=== PATIENT | male | born 1955 | race Native Hawaiian/Other Pacific Islander ===

== ENCOUNTER 2017-02-21 08:41 | Outpatient (CLI) | payer MEDICAID ==
[2017-02-21 13:35] LABS: BASOPHILS % (AUTO) 0.3 %; LYMPHOCYTES # (AUTO) 1.8 10^3/uL (1.5-3.5); MEAN CORPUSCULAR HGB CONC 34.3 g/dL (32.0-36.0); UNCORRECTED WHITE BLOOD COUNT 6.4 x10^3/uL; WHITE BLOOD COUNT 6.4 x10^3/uL (4.8-10.8)
[2017-02-21 13:38] LABS: EOSINOPHILS # (AUTO) 0.4 10^3/uL (0.0-0.7); EOSINOPHILS % (AUTO) 6.3 %; HCT - HEMATOCRIT 49.8 % (42.0-52.0); HGB - HEMOGLOBIN 17.1 g/dL (14.0-18.0); LYMPHOCYTES % (AUTO) 27.4 %; MEAN CORPUSCULAR HEMOGLOBIN 33.8 pg (27.0-31.0); MEAN CORPUSCULAR VOLUME 98.6 fL (80.0-94.0); MEAN PLATELET VOLUME 8.5 fL (7.4-11.4); MONOCYTES # (AUTO) 0.3 10^3/uL (0.0-1.0); MONOCYTES % (AUTO) 5.2 %; NEUTROPHILS # (AUTO) 3.9 10^3/uL (1.5-6.6); NEUTROPHILS % (AUTO) 60.8 %; RED BLOOD COUNT 5.05 10^6/uL (4.70-6.10); RED CELL DISTRIBUTION WIDTH 13.6 % (12.0-15.0)
[2017-02-21 13:57] LABS: ALBUMIN/GLOBULIN RATIO 1.5 (1.0-2.2); BILIRUBIN,TOTAL 0.8 mg/dL (0.2-1.0); BUN - BLOOD UREA NITROGEN 14 mg/dL (6-20); CARBON DIOXIDE - CO2 27 mmol/L (21-32); CHLORIDE 104 mmol/L (101-111); CHOLESTEROL 153 mg/dL; CREATININE 0.8 mg/dL (0.6-1.2); GFR - MDRD 99 (>89); GLUCOSE 90 mg/dL (70-100); HDL CHOLESTEROL 51 mg/dL; LDL/HDL RATIO 1.6 (<3.6); POTASSIUM 3.8 mmol/L (3.5-5.0); SODIUM 138 mmol/L (135-145); TOTAL PROTEIN 6.9 g/dL (6.7-8.2); TRIGLYCERIDES 111 mg/dL; VLDL CHOLESTEROL 22 mg/dL
== END 2017-02-21 08:42 | disposition home or self-care (01) ==
LOC: LAB.N 08:41
PROVIDERS: ATTEND Physician Assistant
DX: I10 Essential (primary) hypertension (principal)
CPT/HCPCS: 36415; 80053; 80061; 84443; 85025

== ENCOUNTER 2017-02-25 15:03 | Outpatient (CLI) | payer MEDICAID | END 2017-02-25 15:04 | disposition home or self-care (01) | LOC: LAB.N 15:03 | PROVIDERS: ATTEND Physician Assistant | DX: D69.6 Thrombocytopenia, unspecified (principal); E53.8 Deficiency of other specified B group vitamins | CPT/HCPCS: 36415; 82607; 85049 ==

== ENCOUNTER 2017-07-12 15:36 | Outpatient (CLI) | payer MEDICAID ==
--- NOTE | 2017-07-13 20:41 | XRAY Report ---
EXAM: CERVICAL SPINE RADIOGRAPHY EXAM DATE: 07/12/2017 03:54 PM. CLINICAL HISTORY: NECK PAIN. COMPARISONS: None. TECHNIQUE: 4 views. FINDINGS: Alignment: Normal. No spondylolisthesis or scoliosis. Bones: The cervical vertebral bodies and posterior elements are well visualized from the skull base t hrough C7-T1. There is anterior plate and screw fusion spanning C3-C7, with multilevel diskectomies. Disks: Multilevel diskectomy changes. Degenerative changes at C2-C3. Facets: Mild facet arthropathy. Soft Tissues: Normal. No prevertebral soft tissue swelling. The visualized lung apices are clear. IMPRESSION: Postoperative changes. No evidence of fracture or hardware complication. [facility] Referring Provider Line: [phone] SITE ID: [id number]
== END 2017-07-12 15:37 | disposition home or self-care (01) ==
LOC: DI.N 15:36
PROVIDERS: ATTEND Family Medicine
DX: M54.2 Cervicalgia (principal)
CPT/HCPCS: 72040

== ENCOUNTER 2017-11-28 07:52 | Outpatient (CLI) | payer MEDICAID ==
--- NOTE | 2017-11-28 14:46 | XRAY Report ---
CHEST TWO VIEWS: 11/28/2017 HISTORY: Chest, neck and shoulder pain. COMPARISON: Thoracic spine x-ray 11/02/2009. FINDINGS: Postsurgical changes cervical spine. Normal heart size. Clear lungs. No pleural fluid or pneumothorax. Degenerative changes in the thoracic spine with mild reverse S-shaped thoracic scoliosis. IMPRESSION: CLEAR LUNGS. NO ACUTE FINDINGS. TD: 11/28/2017 14:45
--- NOTE | 2017-11-28 14:48 | XRAY Report ---
RIGHT SHOULDER THREE VIEWS: 11/28/2017 HISTORY: Pain. COMPARISON: No comparisons. FINDINGS: Three views of the right shoulder show degenerative change at the acromioclavicular joint with narrowing and spurring. There is mild degenerative change at the glenohumeral articulation. No evidence of fracture, bone destruction, or soft tissue calcification. Included portions of the right lung are unremarkable. IMPRESSION: DEGENERATIVE CHANGE RIGHT SHOULDER WITHOUT SUPERIMPOSED ACUTE FINDINGS. TD: 11/28/2017 14:47
--- NOTE | 2017-11-28 14:54 | XRAY Report ---
CERVICAL SPINE FIVE VIEWS: 11/28/2017 HISTORY: Neck pain. COMPARISON: 07/12/2017. FINDINGS: The patient is status post anterior interbody fusion with anterior plate and screw fixation C3 through C7. No evidence of hardware change since 07/12/2017. There is ligamentum nuchal calcification. The right neural foramina are not well seen. There is neural foraminal encroachment on the left at C6-C7. No prevertebal soft tissue swelling. IMPRESSION: STABLE POSTOPERATIVE APPEARANCE OF THE CERVICAL SPINE COMPARED WITH 07/12/2017 REDEMONSTRATING CHANGES OF ANTERIOR C3 THROUGH C7 INCLUSIVE FUSION. TD: 11/28/2017 14:53 OXANA
== END 2017-11-28 07:53 | disposition home or self-care (01) ==
LOC: DI 07:52
PROVIDERS: ATTEND Internal Medicine
DX: R05 Cough (principal); M54.2 Cervicalgia; M19.011 Primary osteoarthritis, right shoulder; Z98.1 Arthrodesis status
CPT/HCPCS: 71046; 72050

== ENCOUNTER 2023-08-23 19:47 | Outpatient (CLI) | payer MEDICAID, OTHER | END 2023-08-23 23:59 | disposition short-term general hospital (02) | LOC: EMS 19:47 | DX: S61.432A Puncture wound without foreign body of left hand, initial encounter (principal); S81.832A Puncture wound without foreign body, left lower leg, initial encounter; W34.00XA Accidental discharge from unspecified firearms or gun, initial encounter; Y92.009 Unspecified place in unspecified non-institutional (private) residence as the place of occurrence of the external cause | CPT/HCPCS: A0425; A0427; A0999 ==